=== PATIENT | female | born 1985 | race Caucasian/White ===

== ENCOUNTER 2019-11-09 10:04 | Emergency (ER) | payer OTHER ==
[~2019-11-09] VITALS: Ht 167.6 cm; Wt 74.0 kg
[2019-11-09] MEDS ORDERED: KETOROLAC 30MG/ML VIAL IV STA (11:52)
[2019-11-09] MEDS ORDERED: ONDANSETRON HCL 4MG/2ML INJ IV STA (11:52)
[2019-11-09] MEDS ORDERED: SODIUM CHLORIDE 0.9% 1,000 ML IV ONE (11:52)
[2019-11-09 12:15] LABS: CHLORIDE 101 mEq/L (98-107)
[2019-11-09 12:16] LABS: BASOPHILS % 0.2 % (0.0-2.0); EOSINOPHILS % 1.1 % (0.0-5.0); HEMOGLOBIN. 13.9 g/dL (12.0-16.0); MEAN CORPUSCULAR HEMOGLOBIN 27.4 pg (28.0-32.0); MEAN CORPUSCULAR VOLUME 82.8 fL (81.0-99.0); MEAN PLATELET VOLUME 9.5 fl (7.4-10.4); MONOCYTES % 6.3 % (2.0-8.0); NEUTROPHILS % 73.4 % (40.0-76.0); PLATELET 318 x1000/uL (130-400); RED BLOOD CELL COUNT 5.07 mill/uL (4.2-5.4); RED CELL DISTRIBUTION WIDTH 14.5 % (11.6-14.6)
[2019-11-09 12:19] LABS: CLARITY URINE TURBID (CLEAR); COLOR URINE YELLOW (YELLOW); KETONES URINE NEGATIVE (NEGATIVE); LEUKOCYTE ESTERASE URINE 3+ (NEGATIVE); NITRITE URINE NEGATIVE (NEGATIVE); OCCULT BLOOD URINE 2+ (NEGATIVE); PH URINE 6.5 (4.5-8.0); PROTEIN URINE 2+ (NEGATIVE); SPECIFIC GRAVITY URINE 1.021 (1.005-1.030); UROBILINOGEN URINE 0.2 E.U./dL (0.2-1.0)
[2019-11-09] MEDS ORDERED: CEFTRIAXONE 2 G PREMIX 50 ML IV ONE (13:15)
[2019-11-09 14:22] VITALS: BP 118/84
== END 2019-11-09 14:21 | disposition home or self-care (01) ==
LOC: ER 10:40
DX: N12 Tubulo-interstitial nephritis, not specified as acute or chronic (principal); R11.2 Nausea with vomiting, unspecified; F17.290 Nicotine dependence, other tobacco product, uncomplicated
CPT/HCPCS: 36415; 74176; 80053; 81003; 81025; 83690; 85025; 87077; 87086; 87186; 96361; 96365; 96375; 99284; 99406; J0696; J1885; J2405; J7030